=== PATIENT | female | born 1985 | race Caucasian/White ===

== ENCOUNTER 2019-07-04 19:20 | Emergency (ER) | payer SELFPAY ==
[~2019-07-04] VITALS: Ht 165.1 cm; Wt 41.0 kg
[2019-07-04 20:07] LABS: CLARITY URINE CLEAR (CLEAR); COLOR URINE YELLOW (YELLOW); KETONES URINE NEGATIVE (NEGATIVE); LEUKOCYTE ESTERASE URINE 1+ (NEGATIVE); NITRITE URINE NEGATIVE (NEGATIVE); OCCULT BLOOD URINE TRACE (NEGATIVE); PH URINE 7.5 (4.5-8.0); PROTEIN URINE NEGATIVE (NEGATIVE); SPECIFIC GRAVITY URINE 1.015 (1.005-1.030); UROBILINOGEN URINE 0.2 E.U./dL (0.2-1.0)
[2019-07-05] MEDS ORDERED: SODIUM CHLORIDE 0.9% 1,000 ML IV ONE (00:31)
[2019-07-05 01:15] LABS: BASOPHILS % 0.6 % (0.0-2.0); EOSINOPHILS % 2.3 % (0.0-5.0); HEMOGLOBIN. 12.5 g/dL (12.0-16.0); LYMPHOCYTES % 13.8 % (20.0-50.0); MEAN CORPUSCULAR HEMOGLOBIN 28.6 pg (28.0-32.0); MEAN CORPUSCULAR VOLUME 84.6 fL (81.0-99.0); MEAN PLATELET VOLUME 9.3 fl (7.4-10.4); MONOCYTES % 9.8 % (2.0-8.0); NEUTROPHILS % 73.5 % (40.0-76.0); PLATELET 279 x1000/uL (130-400); RED BLOOD CELL COUNT 4.38 mill/uL (4.2-5.4); RED CELL DISTRIBUTION WIDTH 14.4 % (11.6-14.6)
[2019-07-05 01:19] LABS: CHLORIDE 106 mEq/L (98-107)
[2019-07-05 02:19] VITALS: BP 119/83
[2019-07-05] MEDS ORDERED: IBUPROFEN 600MG TABLET PO ONE (03:15)
== END 2019-07-05 03:41 | disposition home or self-care (01) ==
LOC: ER 19:20
DX: N39.0 Urinary tract infection, site not specified (principal); J45.909 Unspecified asthma, uncomplicated; R50.9 Fever, unspecified
CPT/HCPCS: 36415; 80053; 81003; 83605; 85025; 99283; J7030